=== PATIENT | male | born 2000 | race Two or more races ===

== ENCOUNTER 2025-07-17 14:30 | Emergency (ER) | payer OTHER ==
[~2025-07-17] VITALS: Ht 172.7 cm; Wt 133.8 kg
[2025-07-17 14:39] VITALS: O2SAT 97
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
[2025-07-17] MEDS ORDERED: BACDST PO (17:57)
[2025-07-17 20:43] VITALS: BP 121/69; PULSE 70; RESP 18; TEMP 98.6
== END 2025-07-17 21:04 | disposition home or self-care (01) ==
LOC: ER 14:30
DX: T24.402A Corrosion of unspecified degree of unspecified site of left lower limb, except ankle and foot, initial encounter (principal); T24.401A Corrosion of unspecified degree of unspecified site of right lower limb, except ankle and foot, initial encounter; L03.116 Cellulitis of left lower limb; L03.115 Cellulitis of right lower limb; Z91.013 Allergy to seafood; Z91.010 Allergy to peanuts; Y92.89 Other specified places as the place of occurrence of the external cause